=== PATIENT | female | born 1995 | race Asian ===

== ENCOUNTER 2016-11-01 21:41 | Emergency (ER) | payer OTHER ==
--- NOTE | 2016-11-01 21:43 | ED Physician Chart ---
Chief Complaint/HPI - Patient Information Date Seen:: 11/01/16 Time Seen:: 21:43 Chief Complaint:: scratchy throat History of Present Illness:: 21-year-old female with severe nut allergy, complains of acute, constant, moderate to severe, scratchy throat that started about 40 minutes prior to arrival after she ate pastry that had nuts. Has associated tingling sensation on her tongue and increased anxiety. As EpiPen but did not use it. Historian:: Patient Review:: Nurse's Note Reviewed Review of Systems - Review of Systems Other: Complete system review otherwise unremarkable except as noted in HPI. Past Medical History - Past Medical History Past Medical History: Asthma/COPD Family History: None Social History: Non Smoker, No Alcohol, No Drug Use, Other (student) Surgical History: None Psychiatricy History: None Medication: Reviewed Family Medical History - Family Member Mother Ethnicity: Non- Hx Family Cancer: No Hx Family Coronary Artery Disease: No Hx Family Congestive Heart Failure: No Hx Family Hypertension: No Hx Family Stroke: No Physical Exam - Physical Examination Other:: INITIAL VITAL SIGNS: Reviewed by me GENERAL: Alert and interactive. Appears slightly anxious. HEAD: Head is normocephalic and atraumatic EYES: EOMI. . No scleral icterus. No conjunctival injection ENT: Moist mucous membranes. NECK: Supple. No masses. Full range of motion RESPIRATORY: No tachypnea. Clear breath sounds bilaterally. No wheezing, rales, or rhonchi CV: Regular rate and rhythm. No murmurs, rubs, or gallops ABDOMEN: Soft, non-distended, non-tender. No guarding. No rebound. No masses. EXTREMITIES: No deformity. No cyanosis. No edema. SKIN: Warm and dry. No obvious rashes. NEUROLOGIC: Alert and oriented. Face is symmetric. Speech is normal. Moves all extremities equally. Motor and sensory distally intact. ED Septic Shock - . Is Septic Shock (SBP<90, OR Lactate>4 mmol\L) present?: No Reassessment (Disposition) - Reassessment Reassessment:: The patient's blood pressure was elevated (>120/80) but appears stable without evidence of hypertensive emergency or urgency. The patient was counseled about the risks hypertension urged to pursue outpatient monitoring and therapy within a week with her primary care physician. Patient had an allergic reaction to nuts. Received IV line immediately. IV Solu-Medrol, Benadryl, Pepcid. Symptoms resolved. Provided prescription for prednisone. Patient has EpiPen. Follow up PCP 1-2 days. Gave return to ER precautions. Patient understands and agrees with the plan. Reassessment Condition:: Improved - Diagnosis Diagnosis:: Allergic reaction to nuts Elevated blood pressure without diagnosis of hypertension - Aftercare/Follow up Instructions Aftercare/Follow-Up Instructions:: Counseled pt regarding lab results/diagnosis & need follow up, Refer to Discharge Instructions Medication Prescribed:: Prednisone - Patient Disposition Discharge/Transfer:: Home Time:: 23:16 Condition at Disposition:: Improved ED Discharge Plan - Patient Disposition Admit/Discharge/Transfer: PT DISCHARGED HOME Condition at Disposition: Improved Instructions: Food Allergy and Anaphylaxis
== END 2016-11-01 23:45 | disposition home or self-care (01) ==
LOC: ER 21:41
DX: T78.1XXA Other adverse food reactions, not elsewhere classified, initial encounter (principal); J39.2 Other diseases of pharynx; R03.0 Elevated blood-pressure reading, without diagnosis of hypertension; Z88.1 Allergy status to other antibiotic agents; Z91.013 Allergy to seafood; Z91.010 Allergy to peanuts; X58.XXXA Exposure to other specified factors, initial encounter
CPT/HCPCS: 99284; 96374; 96375; J3490; J2930; J1200; Z7502